=== PATIENT | male | born 1995 ===

== ENCOUNTER 2016-11-11 09:40 | Emergency (ER) | payer OTHER ==
[2016-11-11 09:51] VITALS: BP 123/70; PULSE 74; RESP 20; TEMP 97; O2SAT 98; BMI 30.4
--- NOTE | 2016-11-11 10:07 | ED PDOC ---
HPI: Allergic Reaction Chief Complaint (Provider): Rash History Per: Patient History/Exam Limitations: no limitations Onset/Duration Of Symptoms: Days (2) Current Symptoms Are (Timing): Still Present Context: Other (deodorant) Possible Cause: Other (deodorant) Associated Symptoms: Itching Home/EMS Treatment: None Severity: Moderate Pain Scale Rating Of: 0 Additional Complaint(s): 20 yo M w/o PMHx presents to ER w c/o rash & itching in b/l armpits. Itching and erythema began 2 days ago, after he used a new type of deodorant. The itching is localized to the areas in which he applied the deodorant and did not expand to anywhere else. He denies any lightheadedness, coughing, SOB, dyspnea, wheezing, tachycardia, dysphagia, or problems swallowing. He did not take any medication to help improve these symptoms. He has experienced a similar rash once 5-6 years ago due to another topical product in which he cannot remember. Otherwise, he denies any fevers/chills, n/v/d/c, headaches, chest pain, abdominal pain, loss of bladder/bowel control, or myalgias. <Rhys Fernandez T - Last Filed: 11/11/16 10:13> <Yung Salas - Last Filed: 11/11/16 10:24> Time Seen by Provider: 11/11/16 09:56 Chief Complaint (Nursing): Abnormal Skin Integrity Supervising Attending Note - Supervising Attending Note The Documented history was done by the: Physician Stretcher Helper The documented physical exam was done by the: Physician Stretcher Helper The documented procedures were done by the: Physician Stretcher Helper - Attestation: I have personally seen and examined this patient.: Yes I have fully participated in the care of the patient.: Yes I have reviewed all pertinent clinical information: Yes - Notes: Notes:: Rash after deodarant <Yung Salas - Last Filed: 11/11/16 10:24> Past Medical History Vital Signs: Last Vital Signs Temp 97 F L 11/11/16 09:48 Pulse 74 11/11/16 09:48 Resp 20 11/11/16 09:48 BP 123/70 11/11/16 09:45 Pulse Ox 98 11/11/16 09:48 - Family History Family History: States: No Known Family Hx <Rhys Fernandez - Last Filed: 11/11/16 10:13> Vital Signs: Last Vital Signs Temp 97 F L 11/11/16 09:48 Pulse 74 11/11/16 09:48 Resp 20 11/11/16 09:48 BP 123/70 11/11/16 09:45 Pulse Ox 98 11/11/16 10:13 <Yung Salas - Last Filed: 11/11/16 10:24> - Home Medications Home Medications: Ambulatory Orders Medication Instructions Recorded Ibuprofen 600 mg PO Q8H PRN #60 tab 12/22/14 DiphenhydrAMINE [Benadryl] 25 mg PO Q8H PRN 5 Days 11/11/16 predniSONE [predniSONE Tab] 20 mg PO BID 5 Days 11/11/16 - Allergies Allergies/Adverse Reactions: Allergies Allergy/AdvReac Type Severity Reaction Status Date / Time No Known Allergies Allergy Verified 11/11/16 09:52 Review of Systems ROS Statement: Except As Marked, All Systems Reviewed And Found Negative <Rhys Fernandez - Last Filed: 11/11/16 10:13> Skin: Positive for: Rash <Yung Salas - Last Filed: 11/11/16 10:24> Physical Exam - Reviewed Nursing Documentation Reviewed: Yes Vital Signs Reviewed: Yes - Physical Exam Appears: Positive for: Well, Non-toxic, No Acute Distress Head Exam: Positive for: ATRAUMATIC, NORMOCEPHALIC Skin: Positive for: Normal Color, Warm, Dry, Rash (localized to b/l armpit: erythematous, blanching, urticaria). Negative for: Diaphoresis, Pallor, Cyanosis Eye Exam: Positive for: Normal appearance, EOMI, PERRL Cardiovascular/Chest: Positive for: Regular Rate, Rhythm. Negative for: Edema Respiratory: Positive for: Normal Breath Sounds. Negative for: Decreased Breath Sounds, Accessory Muscle Use, Rhonchi, Stridor, Wheezing Pulses-Radial (L): 2+ Pulses-Radial (R): 2+ Gastrointestinal/Abdominal: Positive for: Normal Exam, Soft. Negative for: Tenderness, Distended, Guarding Back: Negative for: L CVA Tenderness, R CVA Tenderness Extremity: Negative for: Tenderness, Pedal Edema Neurologic/Psych: Positive for: Alert, corporate safety manager II-XII, Oriented, Gait (normal) <PhildeaanamariaRhys Tucker - Last Filed: 11/11/16 10:13> - Physical Exam Skin: Positive for: Rash <Yung Salas - Last Filed: 11/11/16 10:24> - ECG O2 Sat by Pulse Oximetry: 98 - Progress ED Course And Treament: Will be given Benadryl and Prednisone. Will observe response and discharge appropriately. <JimRhys Tucker - Last Filed: 11/11/16 10:13> - Progress ED Course And Treament: 1022: Stable. AAOx3. Pain free. Tolerated po. FU with pcp. <SalasYung Estela - Last Filed: 11/11/16 10:24> Disposition - Disposition Disposition: Routine/Home Disposition Time: 10:12 <PhildeaRhys conrad - Last Filed: 11/11/16 10:13> - Patient ED Disposition Is Patient to be Admitted: No Counseled Patient/Family Regarding: Diagnosis, Need For Followup, Rx Given - Disposition Disposition: Routine/Home <SalasYung Estela - Last Filed: 11/11/16 10:24> - Clinical Impression Clinical Impression: Urticaria - Disposition Referrals: [facility]Outside] - 11/12/16 Condition: STABLE Additional Instructions: Return if not better in 3 days. Prescriptions: DiphenhydrAMINE [Benadryl] 25 mg PO Q8H PRN 5 Days PRN Reason: Rash predniSONE [predniSONE Tab] 20 mg PO BID 5 Days Instructions: Urticaria (ED) Forms: [facility] app (Kiswahili)
== END 2016-11-11 10:28 | disposition home or self-care (01) ==
LOC: H.ER 09:40
DX: L50.9 Urticaria, unspecified (principal)